=== PATIENT | female | born 1960 | race Caucasian/White ===

== ENCOUNTER 2025-05-30 15:30 | Emergency (ER) | payer MEDICAID ==
[~2025-05-30] VITALS: Ht 170.2 cm; Wt 48.5 kg
--- OUTSIDE RECORDS SUMMARY | 2025-05-30 15:46 | XMS ---
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 Mat has no Care Guidelines for this patient. Jean-Paul VISIT COUNT (12 MO.) 1 [facility] TOTAL 2 NOTE: Visits indicate total known visits. ED/C VISIT TRACKING (12 MO.) 05/30/2025 15:31 [facility] [place] TYPE: Emergency COMPLAINT: - FOLLOW UP 05/05/2025 23:15 [facility] TYPE: Emergency COMPLAINT: - Wound check DIAGNOSES: - Heart failure, unspecified - Local infection of the skin and subcutaneous tissue, unspecified - Other injury of unspecified body region, initial encounter - Shortness of Breath - Wound check INPATIENT VISIT TRACKING (12 MO.) 05/06/2025 01:04 [facility] [place] TYPE: General Medicine COMPLAINT: - Wound check DIAGNOSES: - Acute respiratory failure with hypoxia - Heart failure, unspecified - Local infection of the skin and subcutaneous tissue, unspecified - Other heart failure - Other injury of unspecified body region, initial encounter - Other specified abnormal findings of blood chemistry - Syncope and collapse - Unspecified systolic (congestive) heart failure [id number]
[2025-05-30 18:00] LABS: BASOPHILS 1.2 % (0.1-1.2); EOSINOPHILS 3.1 % (0.7-5.8); LYMPHOCYTES 43.7 % (19.3-51.7); MCH 23.2 PG (25.6-32.2); MCHC 28.6 g/dL (32.2-35.5); MCV 80.8 fL (79.4-94.8); MONOCYTES 9.4 % (4.7-12.5); NEUTROPHILS 42.4 % (34.0-71.1); RBC 4.75 M/uL (3.93-5.22)
[2025-05-30 18:24] LABS: ALT (SGPT) 17.0 U/L (14-59); AST (SGOT) 16.0 U/L (15-37); GLOMERULAR FILTRATION RATE,EST 92.0 mL/min (>60); PROTEIN, TOTAL 8.0 g/dL (6.4-8.2); UREA NITROGEN 36.0 mg/dL (7-18)
[2025-05-30 19:55] VITALS: BP 123/76
--- NOTE | 2025-06-01 21:59 | EKG ---
[facility] [address] [place], [place] [address] Signed Normal sinus rhythm Possible Left atrial enlargement Left ventricular hypertrophy ( Sokolow-Casey , Romhilt-Deluca ) ST \T\ T wave abnormality, consider inferior ischemia Abnormal ECG No previous ECGs available Confirmed by Claudia Dejesus MD () on 06/01/2025 9:58:58 PM Electronically Signed By: CLAUDIA DEJESUS MD 06/01/25 2159 PATIENT NAME: TING CUENCA Electrocardiogram DATE OF : 62 PHYSICIAN: CLAUDIA DEJESUS MD REPORT #: [id number] REPORT IS CONFIDENTIAL AND NOT TO BE RELEASED WITHOUT AUTHORIZATION
== END 2025-05-30 19:55 | disposition home or self-care (01) ==
LOC: ED 15:30
PROVIDERS: Emergency Medicine
DX: Z71.1 Person with feared health complaint in whom no diagnosis is made (principal); E03.9 Hypothyroidism, unspecified; Z88.8 Allergy status to other drugs, medicaments and biological substances
CPT/HCPCS: 36415; 80053; 85025; 85060; 93005; 93010; 99283

== ENCOUNTER 2025-06-24 10:20 | Emergency (ER) | payer MEDICAID ==
[~2025-06-24] VITALS: Ht 170.2 cm; Wt 51.1 kg
--- OUTSIDE RECORDS SUMMARY | 2025-06-24 10:23 | XMS ---
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 Mat has no Care Guidelines for this patient. Jean-Paul VISIT COUNT (12 MO.) 2 [facility] TOTAL 3 NOTE: Visits indicate total known visits. ED/C VISIT TRACKING (12 MO.) 06/24/2025 10:21 [facility] [place] TYPE: Emergency COMPLAINT: - COLD SYMPTOMS 05/30/2025 15:31 [facility] Vargas TYPE: Emergency COMPLAINT: - FOLLOW UP DIAGNOSES: - Allergy status to other drugs, medicaments and biological substances - Dorsalgia, unspecified - Hypothyroidism, unspecified - Person with feared health complaint in whom no diagnosis is made 05/05/2025 23:15 [facility] TYPE: Emergency COMPLAINT: - Wound check DIAGNOSES: - Heart failure, unspecified - Local infection of the skin and subcutaneous tissue, unspecified - Other injury of unspecified body region, initial encounter - Shortness of Breath - Wound check INPATIENT VISIT TRACKING (12 MO.) 05/06/2025 01:04 [facility] TYPE: General Medicine COMPLAINT: - Wound check DIAGNOSES: - Acute respiratory failure with hypoxia - Heart failure, unspecified - Local infection of the skin and subcutaneous tissue, unspecified - Other heart failure - Other injury of unspecified body region, initial encounter - Other specified abnormal findings of blood chemistry - Syncope and collapse - Unspecified systolic (congestive) heart failure [id number]
[2025-06-24] MEDS ORDERED: FARXIGA10 MG PO (10:44)
[2025-06-24] MEDS ORDERED: DULOXETINE HCL20 MG (10:44)
[2025-06-24] MEDS ORDERED: ATORVASTATIN CA40 MG (10:44)
[2025-06-24] MEDS ORDERED: LEVOTHYROXINE75 MCG (10:44)
[2025-06-24] MEDS ORDERED: FERROUS GLUCON324 M1 (10:44)
[2025-06-24] MEDS ORDERED: NICOTINE PATCH1 EACH (10:45)
[2025-06-24] MEDS ORDERED: SPIRONOLACTONE25 MG (10:45)
[2025-06-24] MEDS ORDERED: METOPROLOL SUCC25 MG (10:45)
[2025-06-24] MEDS ORDERED: LOSARTAN POTASS25 MG (10:45)
[2025-06-24] MEDS ORDERED: MAGNESIUM OXID400 M1 (10:45)
[2025-06-24] MEDS ORDERED: VITAMIN B-1100 MG (10:45)
[2025-06-24] MEDS ORDERED: TORSEMIDE20 MG (10:45)
[2025-06-24] MEDS ORDERED: N-ACETYL-L-CYS600 MG (10:47)
[2025-06-24] MEDS ORDERED: [UNRECOGNIZED DRUG - OTHER] (10:48)
[2025-06-24 11:37] LABS: INFLUENZA B NAA NEGATIVE (NEGATIVE); RESPIRATORY SYNCYTIAL VIR NAA NEGATIVE (NEGATIVE)
== END 2025-06-24 12:28 | disposition home or self-care (01) ==
LOC: ED 10:20
PROVIDERS: Emergency Medicine
DX: B34.9 Viral infection, unspecified (principal); E03.9 Hypothyroidism, unspecified; Z79.899 Other long term (current) drug therapy; Z88.8 Allergy status to other drugs, medicaments and biological substances
CPT/HCPCS: 71045; 87502; 99283-25; U0002